=== PATIENT | male | born 1990 ===

== ENCOUNTER 2019-07-21 20:37 | Emergency (ER) | payer OTHER ==
[~2019-07-21] VITALS: Ht 185.4 cm; Wt 140.0 kg
--- NOTE | 2019-07-21 20:55 | NUR ---
THIS IS A 29 YO M W/ C/O CHILLS AND INTERMITTENT FEVERS X1 WEEK THAT IS WORSE AT NIGHT. PT STATES THAT HE WAKES UP FEELING FATIGUED BUT OTHERWISE NO SYMPTOMS, BY AFTERNOON HE GETS DIAPHORETIC AND FEVERS. DENIES COUGH/SOB. PT IS TACHYCARDIC. OTHER VS WDL. RESP EVEN AND UNLABORED, NADN. PT IS RESTING ON GURNEY, CONNECTED TO MONITORING. AWAITING ED EVAL.
[2019-07-21 21:46] LABS: RAPID INFLUENZA A Negative (Negative); RAPID INFLUENZA B Negative (Negative)
[2019-07-21 21:54] LABS: BASOPHILS # (AUTO) 0.03 x10^3/uL (0-0.1); BASOPHILS % (AUTO) 1 % (0-1); EOSINOPHILS # (AUTO) 0.15 x10^3/uL (0-0.4); EOSINOPHILS % (AUTO) 2 % (1-7); LYMPHOCYTES # (AUTO) 1.21 x10^3/uL (1-3.4); LYMPHOCYTES % (AUTO) 19 % (22-44); MD NO; MEAN CORPUSCULAR HEMOGLOBIN 29.3 pg (27.5-34.5); MEAN CORPUSCULAR HGB CONC 33.1 g/dL (33.2-36.2); MEAN CORPUSCULAR VOLUME 88.5 fL (81-97); MEAN PLATELET VOLUME 10.5 fL (7.4-10.4); MONOCYTES # (AUTO) 0.59 x10^3/uL (0.2-0.8); MONOCYTES % (AUTO) 9 % (2-9); NEUTROPHILS # (AUTO) 4.56 x10^3/uL (1.8-6.8); NEUTROPHILS % (AUTO) 70 % (42-75); PLATELET COUNT 159 x10^3/uL (130-400); RED BLOOD COUNT 5.08 x10^6/uL (4.38-5.82); RED CELL DISTRIBUTION WIDTH 13.6 % (9.4-14.8)
--- NOTE | 2019-07-21 22:06 | NUR ---
ALL TESTS RESULTED. PT IS RESTING ON [place] W/ CALL LIGHT IN REACH. UP FOR RECHECK AT THIS TIME.
[2019-07-21 22:26] VITALS: BP 126/75
== END 2019-07-21 22:29 | disposition home or self-care (01) ==
LOC: ED 21:13
DX: B34.9 Viral infection, unspecified (principal); M79.10 Myalgia, unspecified site
CPT/HCPCS: 36415; 71045; 85025; 87400; 99284